=== PATIENT | male | born 1975 | race Caucasian/White ===

== ENCOUNTER 2018-04-15 11:30 | Emergency (ER) | payer OTHER ==
--- NOTE | 2018-04-15 11:45 | EDPHY ---
H & P Stated Complaint: Oil burn to left arm. Source: Patient Exam Limitations: No limitations - Personal History Current Tetanus Diphtheria and Acellular Pertussis (TDAP): Yes - Medical/Surgical History Hx Asthma: No Hx Chronic Respiratory Disease: No Hx Diabetes: No Hx Cardiac Disease: No Hx Renal Disease: No Hx Cirrhosis: No Hx Alcoholism: No Hx HIV/AIDS: No Hx Splenectomy or Spleen Trauma: No Other PMH: pre-diabetes. - Social History Smoking Status: Never smoked Time Seen by Provider: 04/15/18 11:44 HPI/ROS: HPI: This is a 42-year-old male who presents with Chief Complaint: Oil burn to left arm. Location: Left forearm Quality: Burn Duration: Prior to arrival Signs and Symptoms: No bleeding, no radiation, no numbness, no weakness, no tingling, no incontinence, no decreased range of motion, + swelling,+ pain, no fever Timing: Acute Severity: 12/07 Context: Patient was at work when he accidentally pulled a tray of fatima out of the oven and spilled onto his left arm. Patient reports that he smear tomatoes on it. Reports tetanus is current. He complains of moderate, constant , nonradiating pain. Patient is right-hand dominant. Modifying Factors: Smeared burn with tomatoes Comment: ROS: A comprehensive 10 system review of systems is otherwise negative aside from elements mentioned in the history of present illness. MEDICAL/SURGICAL/SOCIAL HISTORY: Medical history: Diabetes mellitus on metformin Surgical history: Denies Social history: Employed. Never smoked. CONSTITUTIONAL: Very polite and cooperative middle-aged male,, awake and alert, no obvious distress HEENT: Atraumatic and normocephalic. NECK: supple EXTREMITIES: 2/2 pulses, strength 5/5, left anterior forearm and upper arm epidermis and deep dermis affected with multiple blisters that are painful. Burned area does not amy in some areas. Sensation is slightly diminished to light touch. Left ELBOW: Full extension to 180, flexion to 150, no tenderness over medial epicondyle, no tenderness over lateral epicondyle, no effusion. DIP/PIP/MCP flexion/extension intact with good light touch sensation. no deformities, no clubbing, no cyanosis or edema. NEUROLOGICAL: no focal neuro deficits. GCS 15. Light touch sensation intact. SKIN: Warm and dry, no erythema. no rash. Good capillary refill. ([place]) Constitutional: Initial Vital Signs Temperature (C) 36.5 C 04/15/18 11:31 Heart Rate 90 04/15/18 11:31 Respiratory Rate 18 04/15/18 11:31 Blood Pressure 134/89 H 04/15/18 11:31 O2 Sat (%) 97 04/15/18 11:31 O2 Delivery Mode Room Air Allergies/Adverse Reactions: No Known Allergies Allergy (Unverified 05/24/11 12:26) Home Medications: Medication Instructions Recorded Metformin HCl 04/15/18 Silver Sulfadiazine 1 john TP DAILY #85 cream..g. 04/15/18 oxyCODONE/APAP 5/325 [Percocet 1 - 2 tab PO Q4H PRN #10 tab 04/15/18 5/325 (*)] Medical Decision Making ED Course/Re-evaluation: Tetanus is up-to-date. IV access and medications given Patient given 1 L normal saline, IV morphine, IV Toradol BSA equals 4%; 2nd degree deep partial-thickness Discussed case with attending who reports patient is able to be discharged home with outpatient follow-up at the burn clinic. Verbal and written wound care instructions provided No signs of neurovascular compromise/tenting of skin/compartment syndrome/ extremities and joints examined above and below area of concern and are neurovascularly intact. This patient was seen under the supervision of my secondary supervising physician. I evaluated care for this patient with my attending. Discussed this patient with Dr. Vincent who did not see the patient. (Criss Bianchi) Differential Diagnosis: Differential diagnosis includes but is not limited to 1st degree burn, second- degree burn, third-degree burn, 4th degree burn buried (Criss Bianchi) - Data Points Medications Given: Discontinued Medications Sodium Chloride (Ns) 1,000 mls @ 0 mls/hr IV EDNOW ONE; Wide Open PRN Reason: Protocol Stop: 04/15/18 12:02 Last Admin: 04/15/18 12:17 Dose: 1,000 mls Ketorolac Tromethamine (Toradol) 30 mg IVP EDNOW ONE Stop: 04/15/18 12:02 Last Admin: 04/15/18 12:22 Dose: 30 mg Morphine Sulfate (Morphine) 4 mg IVP EDNOW ONE Stop: 04/15/18 12:02 Last Admin: 12/17/18 12:20 Dose: 2 mg Ondansetron HCl (Zofran) 4 mg IVP EDNOW ONE Stop: 04/15/18 12:02 Last Admin: 04/15/18 12:19 Dose: 4 mg Departure - Departure Disposition: Home, Routine, Self-Care Clinical Impression: Second degree burn of left arm Condition: Good Instructions: Second Degree Burn (ED), Cold Compress or Soak (ED) Additional Instructions: Keep the dressing dry and in place until seen at the burn center. Take Tylenol 650 mg every 4 hours and/or Ibuprofen 600 mg every 8 hours with food as needed for pain. Use Percocet every 6 hours as needed for severe/break through pain. Do not use Tylenol and Percocet concomitantly. Apply cool compress for 30 minutes at a time; 2-3 times per day for the next 1- 2 days. Called the [place] [facility] today to have an appointment in the next 1-2 days to be seen. The number is [phone] Mantener la mendy seca y en [address] lugar hasta que te vean en el [facility]. Félix Tylenol 650 mg y/o Ibuprofen 600 mg cada 8 horas con comida rere sea necesario para el dolor. Usar Percocet cada 6 horas rere sea necesario para dolor vidhi no controlado con las otras medicinas. No usar Tylenol y Percocet concomitantemente. Aplicar compresas nesbitt para 30 minutos a la vez; 2-3 veces por addy para los proximos 1-2 sousa. Llamar al [facility] en el [facility] hoy para tener ghulam maryam en los proximos 2-3 sousa para que michael vean. El telefono es [phone]. Follow-Up: Please follow-up as noted above. Follow-up sooner if your condition worsens or if you develop any new problems. Call as soon as possible for an appointment. Be clear when you call for an appointment that this is an Emergency Department follow-up. Contact the Emergency Department if you have trouble arranging follow-up care. Our referrals are not based on your insurance network. When time allows, contact your insurance carrier to verify the referral physician is in your plan. If not, get a referral for an in-network design architect. Referrals: OTHER [facility] [place],. [[employer] Truck [employer]] - 1-2 days without fail ([place] [facility] [place] [phone]) Stand Alone Forms: Work Excuse Prescriptions: oxyCODONE/APAP 5/325 [Percocet 5/325 (*)] 1 - 2 tab PO Q4H PRN #10 tab PRN Reason: Pain, Severe Silver Sulfadiazine 1 john TP DAILY #85 cream..g. Print Language: Yi
[2018-04-15] MEDS ORDERED: ONDANSETRON 4 MG/2 ML VIAL IVP ONE (12:01)
[2018-04-15] MEDS ORDERED: NS 1,000 ML IV ONE (12:01)
[2018-04-15] MEDS ORDERED: KETOROLAC 30 MG/1 ML SDV IVP ONE (12:01)
[2018-04-15 14:32] VITALS: BP 120/78
== END 2018-04-15 14:31 | disposition home or self-care (01) ==
PROC: 2W29X4Z Dressing of Left Upper Extremity using Bandage (ICD-10-PCS; principal; 2018-04-15)
DX: T22.212A Burn of second degree of left forearm, initial encounter (principal); T31.0 Burns involving less than 10% of body surface; E86.9 Volume depletion, unspecified; R73.03 Prediabetes; X10.2XXA Contact with fats and cooking oils, initial encounter; Y93.G3 Activity, cooking and baking; Y92.89 Other specified places as the place of occurrence of the external cause; Y99.0 Civilian activity done for income or pay
CPT/HCPCS: 96374; J1885; J2270; J2405